=== PATIENT | female | born 1955 | race Two or more races ===

== ENCOUNTER → 2019-08-24 | Day surgery (SDC) | payer BC, MEDICARE ==
[~2019-08-24] VITALS: Ht 154.9 cm; Wt 66.7 kg
[~2019-08-24] MED LIST: ALBUAER3 IN; EPINEPHrine HCL 1 MG/1 ML AMP ONE; ESTA1TAB PO; GLYCOPYRROLATE 0.2 MG/ML 1ML VIAL IV ONE; LEVO88TA4 PO; MIDAZOLAM HCL 1MG/1ML-2 ML VIAL ONE; MORPHINE SULFATE 4 MG/ML SYR/VIAL IV PRN; ONDANSETRON HCL 4 MG/2 ML VIAL IV PRN; PROPOFOL 10 MG/ML 20 ML IV ONE; ROPIVACAINE 0.5% (5MG/ML) 20ML AMPULE IJ ONE; ROSU20TA14 PO; ceFAZolin 1GM/50ML 50 ML IV ONE; ePHEDrine SULFATE 50 MG/ML AMP IV PRN; fentaNYL CITRATE 100 MCG/2 ML VL IV ONE; fentaNYL CITRATE 100 MCG/2 ML VL ONE; hydrALAZINE HCL 20 MG/ML VL IV PRN
[2019-08-24] MEDS: fentaNYL CITRATE 100 MCG/2 ML VL IV PRN ×2 (11:38→11:51)
[2019-08-24 12:20] VITALS: BP 124/72
== END | disposition home or self-care (01) ==
LOC: SUR 07:48
PROVIDERS: ATTEND Orthopaedic Surgery
DX: S83.512A Sprain of anterior cruciate ligament of left knee, initial encounter (principal); S83.282A Other tear of lateral meniscus, current injury, left knee, initial encounter; M25.762 Osteophyte, left knee; S83.242A Other tear of medial meniscus, current injury, left knee, initial encounter; G56.22 Lesion of ulnar nerve, left upper limb; M70.22 Olecranon bursitis, left elbow; E03.9 Hypothyroidism, unspecified; J45.909 Unspecified asthma, uncomplicated; Z98.890 Other specified postprocedural states; Z91.040 Latex allergy status; Z79.899 Other long term (current) drug therapy; Z90.89 Acquired absence of other organs; Z90.710 Acquired absence of both cervix and uterus; Z90.722 Acquired absence of ovaries, bilateral; X58.XXXA Exposure to other specified factors, initial encounter; Y93.89 Activity, other specified; Y92.89 Other specified places as the place of occurrence of the external cause; Y99.8 Other external cause status
CPT/HCPCS: 29876; 29880; 29888; 73030; 73562; C1713; J0171; J0690; J2250; J2704; J2795; J3010

== ENCOUNTER 2020-12-30 06:56 | Day surgery (SDC) | payer BC, MEDICARE ==
[~2020-12-30] VITALS: Ht 154.9 cm; Wt 64.9 kg
[~2020-12-30 06:56] MED LIST changes: -ALBUAER3 IN; +AMLO-489 PO; +ASPI-498 PO; -EPINEPHrine HCL 1 MG/1 ML AMP ONE; -ESTA1TAB PO; +FLUT250M2 INH; -GLYCOPYRROLATE 0.2 MG/ML 1ML VIAL IV ONE; -MIDAZOLAM HCL 1MG/1ML-2 ML VIAL ONE; -MORPHINE SULFATE 4 MG/ML SYR/VIAL IV PRN; -ONDANSETRON HCL 4 MG/2 ML VIAL IV PRN; -PROPOFOL 10 MG/ML 20 ML IV ONE; -ROPIVACAINE 0.5% (5MG/ML) 20ML AMPULE IJ ONE; -ceFAZolin 1GM/50ML 50 ML IV ONE; -ePHEDrine SULFATE 50 MG/ML AMP IV PRN; -fentaNYL CITRATE 100 MCG/2 ML VL IV ONE; -fentaNYL CITRATE 100 MCG/2 ML VL ONE; -hydrALAZINE HCL 20 MG/ML VL IV PRN
[2020-12-30] MEDS ORDERED: IODIXANOL 320MG/ML 100ML BTL IV ONE (07:25)
[2020-12-30] MEDS ORDERED: LIDOCAINE 2%HCL (LOCAL ANESTH.) INJ 20ML MDV ONE (07:25)
[2020-12-30] MEDS ORDERED: MIDAZOLAM HCL 1MG/1ML-2 ML VIAL ONE (08:07)
[2020-12-30] MEDS ORDERED: ANGIOMAX 250 MG VIAL IV ONE (08:07)
[2020-12-30] MEDS ORDERED: fentaNYL CITRATE 100 MCG/2 ML VL ONE (08:07)
[2020-12-30] MEDS ORDERED: SODIUM CHL 0.9% 0 ML ONE (08:08)
[2020-12-30] MEDS ORDERED: VERAPAMIL 2.5MG/ML INJ 2ML VIAL IV ONE (08:21)
[2020-12-30] MEDS ORDERED: HEPARIN SODIUM (PORCINE) 5000 UNITS/ML 1ML VIAL ONE (08:36)
[2020-12-30] MEDS ORDERED: ACETAMINOPHEN 500 MG TAB PO PRN (09:00)
[2020-12-30] MEDS ORDERED: ONDANSETRON HCL 4 MG/2 ML VIAL IV PRN (09:00)
== END 2020-12-30 11:15 | disposition home or self-care (01) ==
LOC: CATH 06:56
PROVIDERS: ATTEND Internal Medicine Cardiovascular Disease
DX: I25.10 Atherosclerotic heart disease of native coronary artery without angina pectoris (principal); I10 Essential (primary) hypertension; E78.5 Hyperlipidemia, unspecified; E78.00 Pure hypercholesterolemia, unspecified; E03.9 Hypothyroidism, unspecified; F17.200 Nicotine dependence, unspecified, uncomplicated; Z20.822 Contact with and (suspected) exposure to COVID-19; Z98.890 Other specified postprocedural states; Z79.899 Other long term (current) drug therapy; Z79.82 Long term (current) use of aspirin; Z91.040 Latex allergy status
CPT/HCPCS: 93454; C1887; C1894; J1644; J2250; J3010; J7030; Q9967; U0003; 99152